=== PATIENT | female | born 1990 | race African-American/Black ===

== ENCOUNTER 2020-05-17 10:19 | Inpatient (IN) | payer MEDICAID ==
[~2020-05-17] VITALS: Ht 167.6 cm; Wt 68.0 kg
[2020-05-17] MEDS ORDERED: MORPHINE SULFATE 4 MG/ML CPJ (NOT FOR IM USE) IV STA ×2 (10:34→14:27)
[2020-05-17] MEDS ORDERED: SODIUM CHLORIDE 0.9% 1,000 ML IV ONE (10:34)
[2020-05-17] MEDS ORDERED: ONDANSETRON HCL 4MG/2ML INJ IV STA ×2 (10:34→14:27)
[2020-05-17 10:54] LABS: BASOPHILS % 0.2 % (0.0-2.0); EOSINOPHILS % 0.1 % (0.0-5.0); HEMATOCRIT. 41.4 % (36.0-48.0); HEMOGLOBIN. 13.6 g/dL (12.0-16.0); MEAN CORPUSCULAR VOLUME 91.4 fL (81.0-99.0); MEAN PLATELET VOLUME 8.8 fl (7.4-10.4); MONOCYTES % 2.7 % (2.0-8.0); PLATELET 309 x1000/uL (130-400); RED BLOOD CELL COUNT 4.53 mill/uL (4.2-5.4); RED CELL DISTRIBUTION WIDTH 15.4 % (11.6-14.6)
[2020-05-17 10:59] LABS: CHLORIDE 105 mEq/L (98-107)
[2020-05-17 11:03] LABS: INR 1.3; PROTHROMBIN TIME 13.5 sec (9.6-11.0)
[2020-05-17 12:56] LABS: CLARITY URINE CLOUDY (CLEAR); COLOR URINE ORANGE (YELLOW); KETONES URINE NEGATIVE (NEGATIVE); LEUKOCYTE ESTERASE URINE TRACE (NEGATIVE); NITRITE URINE POSITIVE (NEGATIVE); OCCULT BLOOD URINE 1+ (NEGATIVE); PROTEIN URINE 1+ (NEGATIVE); SPECIFIC GRAVITY URINE 1.029 (1.005-1.030)
[2020-05-17] MEDS ORDERED: CEFTRIAXONE 1 G PREMIX 50 ML IV ONE (13:30)
[2020-05-17 20:00] VITALS: BP 112/75
[2020-05-17 20:45] VITALS: BP 112/75
[2020-05-17] MEDS: MORPHINE SULFATE 2 MG/ML CPJ (NOT FOR IM USE) IV PRN (23:10)
[2020-05-18] VITALS: BP 116/65
[2020-05-18 04:00] VITALS: BP 112/64
[2020-05-18] MEDS: MORPHINE SULFATE 2 MG/ML CPJ (NOT FOR IM USE) IV PRN ×4 (05:57→21:21)
[2020-05-18 08:00] VITALS: BP 122/73
[2020-05-18 08:55] LABS: HEMATOCRIT. 38.2 % (36.0-48.0); HEMOGLOBIN. 12.6 g/dL (12.0-16.0); MEAN CORPUSCULAR HEMOGLOBIN 30.1 pg (28.0-32.0); MEAN CORPUSCULAR VOLUME 91.2 fL (81.0-99.0); PLATELET 243 x1000/uL (130-400); RED BLOOD CELL COUNT 4.19 mill/uL (4.2-5.4); RED CELL DISTRIBUTION WIDTH 15.6 % (11.6-14.6)
[2020-05-18 09:01] LABS: CHLORIDE 103 mEq/L (98-107); INR 1.5; PROTHROMBIN TIME 15.1 sec (9.6-11.0)
[2020-05-18] MEDS: CEFAZOLIN 1000MG PREMIX 50 ML IV SCH ×2 (09:06→16:00)
[2020-05-18 10:28] LABS: PLATELET ESTIMATE NORMAL
[2020-05-18 12:00] VITALS: BP_SYST 125; BP_SYST 142; BP_DIAS 72; BP_DIAS 74
[2020-05-18 16:00] VITALS: BP 142/72
[2020-05-18] MEDS: ACETAMINOPHEN 325MG TABLET PO PRN (16:01)
[2020-05-18 20:00] VITALS: BP 114/75
[2020-05-19] VITALS: BP 115/69
[2020-05-19] MEDS: CEFAZOLIN 1000MG PREMIX 50 ML IV SCH (01:29)
[2020-05-19 04:00] VITALS: BP 114/69
[2020-05-19] MEDS: MORPHINE SULFATE 2 MG/ML CPJ (NOT FOR IM USE) IV PRN ×4 (06:14→20:49)
[2020-05-19 08:00] VITALS: BP 120/72
[2020-05-19 09:46] LABS: HEMATOCRIT. 37.3 % (36.0-48.0); HEMOGLOBIN. 12.2 g/dL (12.0-16.0); MEAN CORPUSCULAR HEMOGLOBIN 29.5 pg (28.0-32.0); MEAN PLATELET VOLUME 8.7 fl (7.4-10.4); PLATELET 272 x1000/uL (130-400); RED BLOOD CELL COUNT 4.14 mill/uL (4.2-5.4); RED CELL DISTRIBUTION WIDTH 15.5 % (11.6-14.6)
[2020-05-19 10:26] LABS: CHLORIDE 100 mEq/L (98-107)
[2020-05-19 12:00] VITALS: BP 125/71
[2020-05-19] MEDS ORDERED: ACETAMINOPHEN 650MG SUPP PR PRN (14:45)
[2020-05-19] MEDS: LACTATED RINGERS 1,000 ML IV SCH (15:00)
[2020-05-19] MEDS: ONDANSETRON HCL 4MG/2ML INJ IV PRN ×2 (15:07→20:45)
[2020-05-19 16:00] VITALS: BP 119/71
[2020-05-19 20:00] VITALS: BP 110/69
[2020-05-19 20:32] LABS: PLATELET ESTIMATE NORMAL
[2020-05-20] VITALS (7 sets, daily range): BP systolic 113–130; BP diastolic 65–76
[2020-05-20] MEDS: ONDANSETRON HCL 4MG/2ML INJ IV PRN ×3 (00:50→20:53)
[2020-05-20] MEDS: MORPHINE SULFATE 2 MG/ML CPJ (NOT FOR IM USE) IV PRN ×5 (00:51→20:54)
[2020-05-20] MEDS: LACTATED RINGERS 1,000 ML IV SCH ×4 (00:52→20:54)
[2020-05-20] MEDS: AMPICILLIN SOD/SULBACTAM NA 3 G in SODIUM CHLORIDE 0.9% 100 ML IV SCH ×3 (09:01→20:53)
[2020-05-20] MEDS: CLINDAMYCIN 900 MG in DEXTROSE 5% WATER 50 ML IV SCH ×2 (14:30→23:11)
[2020-05-20] MEDS: GENTAMICIN 120MG PREMIX 100 ML IV SCH (15:47)
[2020-05-20] MEDS: ACETAMINOPHEN 325MG TABLET PO PRN (23:22)
[2020-05-21] MEDS: AMPICILLIN SOD/SULBACTAM NA 3 G in SODIUM CHLORIDE 0.9% 100 ML IV SCH ×4 (01:09→20:03)
[2020-05-21] MEDS: GENTAMICIN 120MG PREMIX 100 ML IV SCH ×2 (04:19→15:34)
[2020-05-21] MEDS: MORPHINE SULFATE 2 MG/ML CPJ (NOT FOR IM USE) IV PRN ×6 (04:21→23:32)
[2020-05-21 05:03] VITALS: BP 119/74
[2020-05-21] MEDS: CLINDAMYCIN 900 MG in DEXTROSE 5% WATER 50 ML IV SCH ×3 (06:25→21:54)
[2020-05-21] MEDS: LACTATED RINGERS 1,000 ML IV SCH ×2 (06:34→14:08)
[2020-05-21 07:14] LABS: HEMATOCRIT. 31.3 % (36.0-48.0); HEMOGLOBIN. 10.4 g/dL (12.0-16.0); MEAN CORPUSCULAR HEMOGLOBIN 29.6 pg (28.0-32.0); MEAN CORPUSCULAR VOLUME 89.4 fL (81.0-99.0); MEAN PLATELET VOLUME 8.4 fl (7.4-10.4); PLATELET 278 x1000/uL (130-400); RED CELL DISTRIBUTION WIDTH 15.7 % (11.6-14.6)
[2020-05-21 08:00] VITALS: BP 124/80
[2020-05-21 12:00] VITALS: BP 132/80
[2020-05-21] MEDS: ONDANSETRON HCL 4MG/2ML INJ IV PRN (12:28)
[2020-05-21] MEDS: ACETAMINOPHEN 325MG TABLET PO PRN ×2 (14:27→21:55)
[2020-05-21 14:45] LABS: PLATELET ESTIMATE NORMAL
[2020-05-21 16:00] VITALS: BP 124/76
[2020-05-21 20:26] VITALS: BP 126/75
[2020-05-21 21:55] LABS: HEMATOCRIT. 36.6 % (36.0-48.0); HEMOGLOBIN. 11.9 g/dL (12.0-16.0); MEAN CORPUSCULAR HEMOGLOBIN 29.7 pg (28.0-32.0); MEAN CORPUSCULAR VOLUME 91.3 fL (81.0-99.0); MEAN PLATELET VOLUME 8.3 fl (7.4-10.4); PLATELET 284 x1000/uL (130-400); RED BLOOD CELL COUNT 4.01 mill/uL (4.2-5.4); RED CELL DISTRIBUTION WIDTH 15.9 % (11.6-14.6)
[2020-05-21 22:11] LABS: ATYPICAL LYMPHOCYTES 1; PLATELET ESTIMATE NORMAL
[2020-05-21 23:52] VITALS: BP 125/77
[2020-05-22] MEDS: MORPHINE SULFATE 2 MG/ML CPJ (NOT FOR IM USE) IV PRN ×5 (03:20→22:12)
[2020-05-22] MEDS: AMPICILLIN SOD/SULBACTAM NA 3 G in SODIUM CHLORIDE 0.9% 100 ML IV SCH ×4 (03:20→21:08)
[2020-05-22] MEDS: GENTAMICIN 120MG PREMIX 100 ML IV SCH (03:39)
[2020-05-22] MEDS: LACTATED RINGERS 1,000 ML IV SCH ×3 (03:39→14:14)
[2020-05-22 04:00] VITALS: BP 120/80
[2020-05-22 05:25] LABS: CHLORIDE 103 mEq/L (98-107)
[2020-05-22] MEDS: CLINDAMYCIN 900 MG in DEXTROSE 5% WATER 50 ML IV SCH ×2 (05:35→14:00)
[2020-05-22 08:00] VITALS: BP 132/71
[2020-05-22] MEDS ORDERED: KCL 20MEQ/100ML PREMIX 100 ML IV SCH (09:00)
[2020-05-22] MEDS ORDERED: SODIUM CHLORIDE 0.9% 1,000 ML IV ONE (11:43)
[2020-05-22] MEDS ORDERED: MEPERIDINE HCL/PF 25MG/ML CPJ IV PRN ×3 (11:45→16:15)
[2020-05-22] MEDS ORDERED: HYDROMORPHONE HCL/PF 2MG/ML CPJ IV PRN ×2 (11:45→16:15)
[2020-05-22] MEDS ORDERED: ONDANSETRON HCL 4MG/2ML INJ IV PRN ×2 (11:45→16:00)
[2020-05-22] MEDS ORDERED: MORPHINE SULFATE 2 MG/ML CPJ (NOT FOR IM USE) IV PRN (11:45)
[2020-05-22 12:39] LABS: UCG SCREEN NEGATIVE
[2020-05-22 14:32] LABS: CLARITY URINE CLOUDY (CLEAR); COLOR URINE RED (YELLOW); KETONES URINE 3+ (NEGATIVE); LEUKOCYTE ESTERASE URINE 1+ (NEGATIVE); NITRITE URINE NEGATIVE (NEGATIVE); OCCULT BLOOD URINE 3+ (NEGATIVE); PROTEIN URINE 2+ (NEGATIVE); SPECIFIC GRAVITY URINE 1.024 (1.005-1.030); UROBILINOGEN URINE 0.2 E.U./dL (0.2-1.0)
[2020-05-22] MEDS ORDERED: LIDOCAINE HCL/PF 1% 10 MG/ML 5ML VIAL ONE (14:52)
[2020-05-22] MEDS ORDERED: FENTANYL CITRATE/PF 50MCG/ML 2ML VIAL ONE ×2 (14:52→15:08)
[2020-05-22] MEDS ORDERED: SODIUM CHLORIDE 0.9% 10ML VIAL ONE (14:52)
[2020-05-22] MEDS ORDERED: GLYCOPYRROLATE 0.2 MG/ML 2ML VIAL ONE (14:52)
[2020-05-22] MEDS ORDERED: MIDAZOLAM HCL 2 MG/2 ML VIAL ONE (14:52)
[2020-05-22] MEDS ORDERED: NEOSTIGMINE METHYLSULFATE 1MG/ML 10 ML VIAL ONE (14:52)
[2020-05-22] MEDS ORDERED: ROCURONIUM BROMIDE 10MG/ML VIAL 5ML IV ONE (14:52)
[2020-05-22] MEDS ORDERED: SUCCINYLCHOLINE CHLORIDE 200MG/10ML IV ONE (14:52)
[2020-05-22] MEDS ORDERED: PROPOFOL 200MG/20ML VIAL IV ONE (14:52)
[2020-05-22] MEDS ORDERED: ONDANSETRON HCL 4MG/2ML INJ ONE (14:53)
[2020-05-22] MEDS ORDERED: METOCLOPRAMIDE HCL 10MG/2ML VIAL ONE (14:53)
[2020-05-22] MEDS ORDERED: GENTAMICIN SULF 40MG/ML 2ML VIAL ONE ×2 (15:11→15:13)
[2020-05-22] MEDS ORDERED: SKIN ADHESIVE 0.7 GM EA TOP ONE (15:57)
[2020-05-22] MEDS ORDERED: ACETAMINOPHEN 650MG SUPP PR PRN (16:00)
[2020-05-22] MEDS: GENTAMICIN SULFATE 160 MG in SODIUM CHLORIDE 0.9% 100 ML IV SCH (16:00)
[2020-05-22] MEDS: DEXT 5%/0.45% NACL KCL 20MEQ/L 1,000 ML IV SCH (18:17)
[2020-05-22 20:00] VITALS: BP 139/82
[2020-05-22] MEDS: CLINDAMYCIN 900 MG PREMIX 50 ML IV SCH (22:16)
[2020-05-23] VITALS: BP 131/71
[2020-05-23] MEDS: ACETAMINOPHEN 325MG TABLET PO PRN (00:30)
[2020-05-23] MEDS: MORPHINE SULFATE 2 MG/ML CPJ (NOT FOR IM USE) IV PRN ×6 (01:58→21:52)
[2020-05-23] MEDS: AMPICILLIN SOD/SULBACTAM NA 3 G in SODIUM CHLORIDE 0.9% 100 ML IV SCH ×4 (02:04→20:57)
[2020-05-23 04:00] VITALS: BP 128/72
[2020-05-23] MEDS: DEXT 5%/0.45% NACL KCL 20MEQ/L 1,000 ML IV SCH ×2 (04:00→16:15)
[2020-05-23] MEDS: GENTAMICIN SULFATE 160 MG in SODIUM CHLORIDE 0.9% 100 ML IV SCH ×2 (05:28→16:14)
[2020-05-23 06:30] LABS: HEMATOCRIT. 30.8 % (36.0-48.0); HEMOGLOBIN. 10.4 g/dL (12.0-16.0); MEAN CORPUSCULAR HEMOGLOBIN 29.7 pg (28.0-32.0); MEAN CORPUSCULAR VOLUME 87.9 fL (81.0-99.0); MEAN PLATELET VOLUME 8.4 fl (7.4-10.4); PLATELET 344 x1000/uL (130-400); RED CELL DISTRIBUTION WIDTH 15.7 % (11.6-14.6)
[2020-05-23 07:19] LABS: CHLORIDE 102 mEq/L (98-107)
[2020-05-23 08:00] VITALS: BP 118/70
[2020-05-23 12:00] VITALS: BP 119/71
[2020-05-23] MEDS: CLINDAMYCIN 900 MG PREMIX 50 ML IV SCH ×2 (13:55→21:52)
[2020-05-23 16:00] VITALS: BP 118/86
[2020-05-23 20:00] VITALS: BP 118/70
[2020-05-23 23:19] LABS: NUCLEATED RED BLOOD CELLS 1 /100 WBC; PLATELET ESTIMATE NORMAL
[2020-05-24] VITALS: BP 119/72
[2020-05-24] MEDS: MORPHINE SULFATE 2 MG/ML CPJ (NOT FOR IM USE) IV PRN ×5 (01:15→18:00)
[2020-05-24] MEDS: AMPICILLIN SOD/SULBACTAM NA 3 G in SODIUM CHLORIDE 0.9% 100 ML IV SCH ×4 (02:31→20:50)
[2020-05-24] MEDS: DEXT 5%/0.45% NACL KCL 20MEQ/L 1,000 ML IV SCH ×3 (02:31→21:07)
[2020-05-24 04:00] VITALS: BP 119/71
[2020-05-24] MEDS: GENTAMICIN SULFATE 160 MG in SODIUM CHLORIDE 0.9% 100 ML IV SCH (04:15)
[2020-05-24] MEDS: CLINDAMYCIN 900 MG PREMIX 50 ML IV SCH ×3 (06:01→22:23)
[2020-05-24 08:00] VITALS: BP 124/77
[2020-05-24 12:00] VITALS: BP 119/72
[2020-05-24 16:00] VITALS: BP 125/62
[2020-05-24] MEDS: GENTAMICIN 120MG PREMIX 100 ML IV SCH (16:35)
[2020-05-24 20:00] VITALS: BP 113/67
[2020-05-24] MEDS: ACETAMINOPHEN 325MG TABLET PO PRN (20:49)
[2020-05-25] VITALS: BP 101/67
[2020-05-25] MEDS: MORPHINE SULFATE 2 MG/ML CPJ (NOT FOR IM USE) IV PRN ×4 (01:55→19:23)
[2020-05-25] MEDS: AMPICILLIN SOD/SULBACTAM NA 3 G in SODIUM CHLORIDE 0.9% 100 ML IV SCH ×4 (02:13→20:53)
[2020-05-25 04:00] VITALS: BP 113/69
[2020-05-25] MEDS: GENTAMICIN 120MG PREMIX 100 ML IV SCH ×2 (05:08→16:19)
[2020-05-25] MEDS: CLINDAMYCIN 900 MG PREMIX 50 ML IV SCH ×3 (06:20→20:53)
[2020-05-25] MEDS: DEXT 5%/0.45% NACL KCL 20MEQ/L 1,000 ML IV SCH (08:58)
[2020-05-25 12:00] VITALS: BP 112/68
[2020-05-25] MEDS ORDERED: IBUP-2030 MT (15:49)
[2020-05-25 16:00] VITALS: BP 103/64
[2020-05-25 20:00] VITALS: BP 119/68
[2020-05-25] MEDS ORDERED: ACETAMINOPHEN WITH CODEINE 300/30MG TABLET PO PRN (20:15)
[2020-05-25] MEDS: IBUPROFEN 800MG TABLET PO PRN (21:41)
[2020-05-26] VITALS: BP 101/63
[2020-05-26] MEDS: DEXT 5%/0.45% NACL KCL 20MEQ/L 1,000 ML IV SCH (02:00)
[2020-05-26 04:00] VITALS: BP 109/71
[2020-05-26 08:00] VITALS: BP 110/62
[2020-05-26] MEDS: IBUPROFEN 800MG TABLET PO PRN (09:09)
[2020-05-26 10:31] VITALS: BP 110/62
[2020-05-26 12:00] VITALS: BP 112/64
== END 2020-05-26 12:10 | disposition home or self-care (01) | DRG 513 ==
LOC: ER 10:19 → 6EST 18:19 → ENRESERV 19:50
PROVIDERS: ADMIT Obstetrics & Gynecology; ATTEND Obstetrics & Gynecology
PROC: 0UB10ZZ Excision of Left Ovary, Open Approach (ICD-10-PCS; principal; 2020-05-22)
DX: N83.202 Unspecified ovarian cyst, left side (principal); N80.3 Endometriosis of pelvic peritoneum; N80.1 Endometriosis of ovary; R10.2 Pelvic and perineal pain; N30.90 Cystitis, unspecified without hematuria; K66.0 Peritoneal adhesions (postprocedural) (postinfection); Z20.828 Contact with and (suspected) exposure to other viral communicable diseases
CPT/HCPCS: 36415; 74176; 76830; 76856; 80048; 80053; 80170; 81003; 81025; 85025; 86850; 86900; 87426; 87635; 88304; 93005; 96365; 99285; J0295; J0330; J0690; J0696; J1170; J1580; J2250; J2270; J2405; J2704; J2710; J2765; J3010; J3480; J3490; J7030; J7040; J7050; J7060; J7120